=== PATIENT | male | born 1980 | race Caucasian/White ===

== ENCOUNTER 2017-06-10 20:35 | Outpatient (CLI) | payer BC | END 2017-06-11 06:50 | disposition home or self-care (01) | LOC: SLEEP 20:35 | PROVIDERS: ATTEND Family Medicine | DX: G47.33 Obstructive sleep apnea (adult) (pediatric) (principal) | CPT/HCPCS: 95810 ==

== ENCOUNTER 2017-07-28 20:37 | Outpatient (CLI) | payer BC | END 2017-07-29 06:45 | disposition home or self-care (01) | LOC: SLEEP 20:37 | PROVIDERS: ATTEND Nurse Practitioner Family | DX: G47.33 Obstructive sleep apnea (adult) (pediatric) (principal) | CPT/HCPCS: 95811 ==

== ENCOUNTER 2018-09-21 08:00 | Outpatient (RCR) | payer BC ==
--- NOTE | 2018-09-20 15:00 | NUR ---
Met with pt to discuss diabetes management. Pt is a new diabetic. We discussed meal planning, taking medications and increasing exercise/activity. Pt had many questions, all answered. Pt wants to attend November DSME classes.
== END 2019-01-22 | disposition home or self-care (01) ==
LOC: DSME 08:00
PROVIDERS: ATTEND Family Medicine
DX: E11.9 Type 2 diabetes mellitus without complications (principal); I10 Essential (primary) hypertension; E66.9 Obesity, unspecified

== ENCOUNTER → 2023-04-22 | Outpatient (CLI) | payer BC ==
--- NOTE | 2023-04-22 11:14 | Diagnostic Imaging Report ---
Indication: Chest pain and cough. Time of Exam: 10:55 AM No prior studies are available for comparison. Heart size normal. There is what appears to be some probable infiltrate in the right base partially obscuring the right hemidiaphragm. Left lung is fairly clear. No significant effusion is seen. There is no pneumothorax. Impression: Findings suggestive of right basilar infiltrate or atelectasis. Dictated by: Dictated on workstation # [id number]
== END ==
LOC: RAD 10:44
PROVIDERS: ATTEND Nurse Practitioner Family
DX: R05.9 Cough, unspecified (principal); R50.9 Fever, unspecified; R07.89 Other chest pain
CPT/HCPCS: 71046

== ENCOUNTER → 2023-05-11 | Outpatient (CLI) | payer BC ==
--- NOTE | 2023-05-11 11:05 | Diagnostic Imaging Report ---
EXAMINATION: Chest 2 view HISTORY: PAST RT LOWER LOBE INFILTRATE AND CONTINUED PRODUCTIVE COUGH COMPARISON: 04/22/2023 FINDINGS: Heart size and pulmonary vasculature are stable. Persistent right-sided pleural effusion with increasing right mid and lower lung airspace opacities. No pneumothorax. The osseous structures are intact. IMPRESSION: 1. Stable right pleural effusion with increasing right mid and lower lung atelectasis or consolidation compared to 04/22/2023. Dictated by: Dictated on workstation # [id number]
== END ==
LOC: RAD 10:37
PROVIDERS: ATTEND Nurse Practitioner Family
DX: J90 Pleural effusion, not elsewhere classified (principal); R91.8 Other nonspecific abnormal finding of lung field
CPT/HCPCS: 71046

== ENCOUNTER → 2023-05-17 | Outpatient (CLI) | payer BC, SELFPAY ==
--- NOTE | 2023-05-17 14:14 | Diagnostic Imaging Report ---
INDICATION: Obesity and diabetes CT coronary calcium study performed with noncontrast images of the heart followed by calculation of coronary calcium score. Dose reduction protocol was used. Raw data images demonstrate no overt adenopathy in the mediastinum or feliciano. There is extensive consolidation in the right lower lobe with multiloculated pleural effusion, the lung gentile are not entirely visualized on the study and would consider a full chest CT for further evaluation. Coronary artery evaluation demonstrates no significant coronary artery calcification. Coronary calcium score was 0. IMPRESSION: Coronary calcium score was 0, no significant coronary calcification. There is extensive alveolar infiltrate in the right lung base as well as multiloculated right-sided pleural fluid collections which may represent complex pleural effusion and/or empyema. Recommend full chest CT with contrast for further evaluation. Report was faxed to office of Reba Carter APRN by [employer] at 2:08PM. Dictated by: Dictated on workstation # [id number]
== END ==
LOC: RAD 12:44
PROVIDERS: ATTEND Nurse Practitioner Family
DX: R91.8 Other nonspecific abnormal finding of lung field (principal); E11.9 Type 2 diabetes mellitus without complications; E66.9 Obesity, unspecified
CPT/HCPCS: 75571

== ENCOUNTER 2023-05-19 20:44 | Emergency (ER) | payer BC ==
[~2023-05-19] VITALS: Ht 185 cm; Wt 143.0 kg
[2023-05-19] MEDS ORDERED: cefTRIAXone IV/IM 1,000 MG in NS (IVPB) 50 ML IV STA (20:59)
--- NOTE | 2023-05-19 21:04 | ED Cough/URI ---
General Chief Complaint: Respiratory Problems Stated Complaint: RIGHT ARM/LUNG PAIN Nursing Triage Note: PT AMB TO RM 10 W C/O RIGHT ARM PAIN AND CP R/T PNA DX 3 WKS AGO. PT TAKING ABX AT THIS TIME. A&OX4. Source: patient Exam Limitations: no limitations (UDAY PINEDA) History of Present Illness Date Seen by Provider: May 19, 2023 Time Seen by Provider: 21:03 Initial Comments Patient is a 43-year-old male with a history of diabetes and sleep apnea who presents to the ED for cough and pain with deep inspiration. Patient states about a month ago he started having pains in his upper back. Pain radiated to the chest with a cough and shortness of breath. diagnosed with pneumonia. Patient Has been on multiple antibiotics such as Augmentin, Levaquin, antifungal and Rocephin without much improvement. Patient reports today with continuous cough with brownish sputum production and chest pain with deep inspiration. Patient had a recent chest x-ray that showed continuous pleural effusion with consolidation. He is also complaining right shoulder pain for the past week. No specific injury. Pain with any type of movement over the right shoulder. Patient denies history of coronary artery disease, COPD, asthma or smoking. Patient denies any fever, vomiting, diarrhea, drug use or alcohol use. Denies of any trauma. Denies any recent travels or surgeries. (UDAY PINEDA) Allergies and Home Medications Allergies Coded Allergies: No Known Drug Allergies (Unverified , 05/19/23) Patient Home Medication List Home Medication List Reviewed: Yes (JACKLYN ELAINE MD) Review of Systems Review of Systems Constitutional: No chills, No diaphoresis, No fever, No malaise, No weakness EENTM: No ear pain, No blurred vision, No double vision Respiratory: cough, short of breath Cardiovascular: chest pain Gastrointestinal: No abdominal pain, No diarrhea, No nausea, No vomiting Genitourinary: No decreased output, No discharge Musculoskeletal: No back pain; joint pain, muscle pain Skin: No change in color, No change in hair/nails (UDAY PINEDA) All Other Systems Reviewed Negative Unless Noted: Yes (UDAY PINEDA) Past Rczqfdh-Yjpqcl-Lzkhvs Hx Patient Social History Tobacco Use?: No Use of E-Cig and/or Vaping dev: No Substance use?: No Alcohol Use?: No (UDAY PINEDA) Physical Exam Vital Signs - First Documented 05/19/23 20:52 Temp 37.4 Pulse 112 Resp 22 B/P (MAP) 145/89 (107) Pulse Ox 96 O2 Delivery Room Air (JACKLYN ELAINE MD) Capillary Refill : Less Than 3 Seconds (UDAY PINEDA) Height: '" Weight: lbs. oz. kg; 41.00 BMI Method: General Appearance: WD/WN, no apparent distress Eyes: Bilateral Eye Normal Inspection, Bilateral Eye PERRL, Bilateral Eye EOMI HEENT: PERRL/EOMI, normal ENT inspection, TMs normal, pharynx normal Neck: non-tender, full range of motion, supple Respiratory: no respiratory distress, no accessory muscle use, wheezing Cardiovascular: no gallop, no JVD, tachycardia Gastrointestinal: normal bowel sounds, non tender, soft, no organomegaly Extremities: non-tender, normal inspection, no pedal edema, other (Limited passive range of motion the right shoulder. Right anterior shoulder tenderness. Pain with internal and external rotation. Planting Supervisor strength out of 5. Neurovascular intact) Neurologic/Psychiatric: epidemiology intern II-XII nml as tested, no motor/sensory deficits, alert, normal mood/affect, oriented x 3 Skin: normal color, warm/dry (UDAY PINEDA) Focused Exam Lactate Level 05/19/23 21:10: Lactic Acid Level 0.88 (JACKLYN ELAINE MD) Lactic Acid Level Laboratory Tests Test 05/19/23 21:10 Lactic Acid Level 0.88 MMOL/L (0.50-2.00) (JACKLYN ELAINE MD) Progress/Results/Core Measures Suspected Sepsis SIRS Temperature: Pulse: 112 Respiratory Rate: 22 Laboratory Tests 05/19/23 21:10: White Blood Count 12.0H Blood Pressure 145 /89 Mean: 107 05/19/23 21:10: Lactic Acid Level 0.88 Laboratory Tests 05/19/23 21:10: Creatinine 0.69, Platelet Count 490H, Total Bilirubin 0.5 (UDAY PINEDA) Results/Orders Lab Results Laboratory Tests Test 05/19/23 21:10 Range/Units White Blood Count 12.0 H 4.3-11.0 10^3/uL Red Blood Count 3.84 L 4.30-5.52 10^6/uL Hemoglobin 10.5 L 13.3-17.7 g/dL Hematocrit 31 L 40-54 % Mean Corpuscular Volume 82 80-99 fL Mean Corpuscular Hemoglobin 27 25-34 pg Mean Corpuscular Hemoglobin Concent 34 32-36 g/dL Red Cell Distribution Width 13.7 10.0-14.5 % Platelet Count 490 H 130-400 10^3/uL Mean Platelet Volume 9.0 9.0-12.2 fL Immature Granulocyte % (Auto) 1 % Neutrophils (%) (Auto) 66 42-75 % Lymphocytes (%) (Auto) 24 12-44 % Monocytes (%) (Auto) 8 0-12 % Eosinophils (%) (Auto) 1 0-10 % Basophils (%) (Auto) 0 0-10 % Neutrophils # (Auto) 7.9 H 1.8-7.8 10^3/uL Lymphocytes # (Auto) 2.9 1.0-4.0 10^3/uL Monocytes # (Auto) 0.9 0.0-1.0 10^3/uL Eosinophils # (Auto) 0.2 0.0-0.3 10^3/uL Basophils # (Auto) 0.0 0.0-0.1 10^3/uL Immature Granulocyte # (Auto) 0.2 H 0.0-0.1 10^3/uL Sodium Level 137 135-145 MMOL/L Potassium Level 3.6 3.6-5.0 MMOL/L Chloride Level 99 98-107 MMOL/L Carbon Dioxide Level 25 21-32 MMOL/L Anion Gap 13 5-14 MMOL/L Blood Urea Nitrogen 7 7-18 MG/DL Creatinine 0.69 0.60-1.30 MG/DL Estimat Glomerular Filtration Rate 117 BUN/Creatinine Ratio 10 Glucose Level 133 H 70-105 MG/DL Lactic Acid Level 0.88 0.50-2.00 MMOL/L Calcium Level 8.9 8.5-10.1 MG/DL Corrected Calcium 9.7 8.5-10.1 MG/DL Total Bilirubin 0.5 0.1-1.0 MG/DL Aspartate Amino Transf (AST/SGOT) 18 5-34 U/L Alanine Aminotransferase (ALT/SGPT) 13 0-55 U/L Alkaline Phosphatase 57 40-136 U/L Troponin I < 0.028 <0.028 NG/ML C-Reactive Protein High Sensitivity 17.27 H 0.00-0.50 MG/DL B-Type Natriuretic Peptide 13.7 <100.0 PG/ML Total Protein 7.6 6.4-8.2 GM/DL Albumin 3.0 L 3.2-4.5 GM/DL (JACKLYN ELAINE MD) Micro Results Microbiology 05/19/23 Blood Culture - Preliminary, Resulted No growth 05/19/23 Blood Culture - Preliminary, Resulted No growth (JACKLYN ELAINE MD) My Orders Orders - JACKLYN ELAINE MD Sputum Culture (05/20/23 02:28) (JACKLYN ELAINE MD) Medications Given in ED (JACKLYN ELAINE MD) Vital Signs/I&O 05/19/23 05/19/23 05/20/23 05/20/23 20:52 21:33 05:16 05:51 Temp 37.4 Pulse 112 117 111 Resp 22 20 22 B/P (MAP) 145/89 (107) 131/88 (102) 133/74 Pulse Ox 96 95 96 O2 Delivery Room Air Room Air Room Air Room Air (JACKLYN ELAINE MD) Vital Signs/I&O Capillary Refill : Less Than 3 Seconds (UDAY PINEDA) Blood Pressure Mean: 107 Progress Note : Time: 02:48 Progress Note Care of this patient was assumed from ABILIO Hardy at the conclusion of his shift. Labs were reviewed including CBC, CMP, CRP, and lactic acid. There was mild leukocytosis of 12,000. CRP was notably elevated at 17. Lactic acid was normal. CT angiogram of the chest was obtained and was reviewed by me. By my interpretation, there appears to be 2 loculated collections of fluid in the right chest cavity measuring approximately 5 cm and 10 cm at maximum dimension. [employer] radiologist report was also reviewed. There was concern for empyema. I discussed the case with Dr. Gunter (hospitalist) and Dr. Lewis (general surgeon). Their consensus was that this patient requires care that is beyond the scope of practice at [facility]. He may need bronchoscopy, IR drainage, or decortication that cannot be performed here. He has received Zosyn and vancomycin after blood cultures were obtained. I am presently working with tertiary care facilities to find a hospital that can provide the needed specialty services. Patient is stable at this time. He is requiring no oxygen and is not in any distress. He has mild tachycardia. Blood pressure is stable. (JACKLYN ELAINE MD) Diagnostic Imaging Diagonstic Imaging: Xray Plain Films/CT/US/NM/MRI: other (Right shoulder) Comments Right shoulder x-ray was viewed by me. Report was not yet available. By my interpretation there were no acute bony abnormalities appreciated. Diagonstic Imaging: Xray Plain Films/CT/US/NM/MRI: chest Comments Chest x-ray was viewed by me. Radiologist's report is not yet available. There were opacities noted in the right lower lung concerning for pneumonia and/or loculations. Diagonstic Imaging: CT Plain Films/CT/US/NM/MRI: chest Comments CT angiogram of the chest was viewed by me and stat [facility] report was reviewed. There are loculations within the right lower chest concerning for possible em pyema associated with pneumonia. (JACKLYN ELAINE MD) Departure Communication (PCP) Patient presents ED with chest pain with deep inspiration, cough and right shoulder pain. Shoulder pain over the past week without any specific injury. Patient has been on multiple rounds of antibiotics for this right sided pneumonia without much improvement. Patient was not hypoxic but was tachycardic. Sepsis protocol was initiated. Blood cultures pending. Normal lactic acid. Started on cefepime and vancomycin due to outpatient antibiotic failure. CBC showed white blood count of 12. Hemoglobin of 10. Platelets 490. Chemistry showed a CRP of 17. Normal troponin. Chest x-ray concerning for right lower lobe pneumonia. EKG sinus tachycardia. Concern for this ongoing pneumonia. Concern for empyema. X-ray of the right shoulder was ordered which was negative for fracture. Concern for this nontraumatic right shoulder pain. CT angio of the chest was ordered for further evaluation. Patient was discussed with Dr. Gomez who took over care at 11 PM (UDAY PINEDA) Impression Primary Impression: Sepsis Qualified Codes: A41.9 - Sepsis, unspecified organism Additional Impressions: Right lower lobe pneumonia Qualified Codes: J18.9 - Pneumonia, unspecified organism Empyema Disposition: XFER SHT-TRM HOSP Condition: Stable Transfer Transfer Reason: Exceeds level of care Time Spoke to Accepting Phy: 04:11 Transfer Progress Notes Transfer accepted by Dr. Louise, hospitalist, at [place] in [place]. Acceptance was in consultation with Dr. Mcintyre, surgeon. Transfer Time: 05:51 Transfer Facility: [facility] Method of Transfer: EMS (JACKLYN ELAINE MD) Departure-Patient Inst. Referrals: FATMATA VALDEZ APRN (PCP/Family) Primary Care Physician UDAY PINEDA May 19, 2023 21:04 JACKLYN ELAINE MD May 20, 2023 02:53
[2023-05-19] MEDS ORDERED: NS IV 1000 ML 1,000 ML IV STA (21:05)
[2023-05-19 21:35] LABS: BASOPHILS % (AUTO) 0 % (0-10); EOSINOPHILS # (AUTO) 0.2 10^3/uL (0.0-0.3); EOSINOPHILS % (AUTO) 1 % (0-10); HEMATOCRIT 31 % (40-54); HEMOGLOBIN 10.5 g/dL (13.3-17.7); LYMPHOCYTES # (AUTO) 2.9 10^3/uL (1.0-4.0); LYMPHOCYTES % (AUTO) 24 % (12-44); MEAN CORPUSCULAR HEMOGLOBIN 27 pg (25-34); MEAN CORPUSCULAR HGB CONC 34 g/dL (32-36); MEAN CORPUSCULAR VOLUME 82 fL (80-99); MONOCYTES # (AUTO) 0.9 10^3/uL (0.0-1.0); MONOCYTES % (AUTO) 8 % (0-12); NEUTROPHILS # (AUTO) 7.9 10^3/uL (1.8-7.8); NEUTROPHILS % (AUTO) 66 % (42-75); PLATELET COUNT 490 10^3/uL (130-400)
[2023-05-19] MEDS ORDERED: CEFEPIME INJECTION 1,000 MG in NS (IVPB) 50 ML IV ONE (21:45)
[2023-05-19] MEDS ORDERED: VANCOMYCIN INJECTION 1,000 MG in NS (IVPB) 250 ML IV ONE (21:45)
[2023-05-19 21:53] LABS: ALANINE AMINOTRANSFERASE 13 U/L (0-55); ALKALINE PHOSPHATASE 57 U/L (40-136); BILIRUBIN,TOTAL 0.5 MG/DL (0.1-1.0); BUN/CREATININE RATIO 10; CALCIUM 8.9 MG/DL (8.5-10.1); CARBON DIOXIDE 25 MMOL/L (21-32); CHLORIDE 99 MMOL/L (98-107); CREATININE SERUM 0.69 MG/DL (0.60-1.30); GFR ESTIMATED 117; GLUCOSE 133 MG/DL (70-105); POTASSIUM 3.6 MMOL/L (3.6-5.0); SODIUM 137 MMOL/L (135-145); TOTAL PROTEIN 7.6 GM/DL (6.4-8.2)
[2023-05-20 05:51] VITALS: BP 133/74
--- NOTE | 2023-05-20 07:37 | Diagnostic Imaging Report ---
CLINICAL INDICATION: Patient with right shoulder pain. EXAM: X-ray right shoulder, 3 views. COMPARISON: None. FINDINGS: There is no acute fracture or dislocation. There is bony sclerosis involving the proximal right humeral tubercle region. There is minimal spurring of the right AC joint. There is a small right pleural effusion and atelectasis versus infiltrate involving the right lung base. IMPRESSION: 1: There is minimal degenerative disease of the right shoulder with no acute fracture or dislocation. 2: There is a small right pleural effusion and right lung base atelectasis versus infiltrates. Dictated by: Dictated on workstation # [id number]
--- NOTE | 2023-05-20 07:48 | Diagnostic Imaging Report ---
EXAMINATION: Chest 1 view HISTORY: cough, chest pain COMPARISON: None available. FINDINGS: There is a loculated right pleural effusion. There is right base airspace opacity. No pneumothorax. Heart size is normal. IMPRESSION: 1. Loculated right pleural effusion and right base opacities suggestive of pneumonia. Dictated by: Dictated on workstation # [id number]
--- NOTE | 2023-05-20 07:59 | Diagnostic Imaging Report ---
PROCEDURE: CT angiography chest. TECHNIQUE: After intravenous administration of contrast, thin section axial CT angiography of the chest was performed. 3D MIP reconstructions were made. All CT scans use one or more of the following dose optimizing techniques: automated exposure control, MA and/or KvP adjustment based on a patient size and exam type, or iterative reconstruction. INDICATION: Chest pain and shortness of breath. COMPARISON: Calcium scoring CT from 05/17/2023. FINDINGS: Vasculature: No pulmonary emboli. No CT evidence of pulmonary hypertension or right ventricular strain. Thoracic aorta is normal in caliber. No aortic dissection or pseudoaneurysm. Heart and mediastinum: Visualized thyroid is normal. There is a 2 cm left supraclavicular lymph node below the left thyroid lobe. Borderline enlarged subcarinal lymph node measuring 1.5 cm in short axis. Possible enlarged right hilar lymph nodes versus perihilar consolidation. Heart is normal in size without pericardial effusion. Normal caliber thoracic aorta. Pleura: Multiloculated right pleural effusion with small foci of air within the collection, suspicious for empyema. Lungs and airway: No abnormality of the trachea. Right lower lobe consolidation is again noted extending from the hilum to the periphery of the lung. Loculated fluid is present within the major fissure adjacent to these collections. Upper abdomen: Diffuse hypoattenuation of the liver is indicative of steatosis. Musculoskeletal: No concerning osseous lesion. Right glenohumeral joint effusion with a small amount of pericapsular inflammation. IMPRESSION: 1. No pulmonary or acute aortic syndrome. 2. Right lower lobe pneumonia with associated loculated pleural effusion that is likely empyema. 3. Mildly enlarged mediastinal and left supraclavicular lymph node are likely reactive in nature. 4. Preliminary report did not mention a right glenohumeral joint effusion. Correlation for right shoulder pain is advised and, if warranted, ultrasound-guided aspiration could be performed to assess for possible infection. Dictated by: Dictated on workstation # [id number]
== END 2023-05-20 05:51 | disposition short-term general hospital (02) ==
LOC: EDUNIT# 20:44 → ER 20:48
DX: A41.9 Sepsis, unspecified organism (principal); J18.9 Pneumonia, unspecified organism; J86.9 Pyothorax without fistula; R79.82 Elevated C-reactive protein (CRP)
CPT/HCPCS: 36415; 71045; 71275; 73030; 80053; 83605; 83880; 84484; 85025; 86141; 87040; 87070; 87205